=== PATIENT | male | born 1950 | race Caucasian/White ===

== ENCOUNTER 2019-10-31 19:57 | Emergency (ER) | payer MEDICARE, BC ==
[~2019-10-31] VITALS: Ht 180.3 cm; Wt 87.0 kg
[2019-10-31] MEDS ORDERED: LIDOcaine 2% 10ml TOPICAL JELLY (Urojet) MM ONE ×2 (20:30→21:25)
[2019-10-31] MEDS ORDERED: tamsulosin 0.4mg capsule PO ONE (20:40)
[2019-10-31 22:42] LABS: COLOR,URINE YELLOW (Yellow); GLUCOSE, URINE NEGATIVE (Neg); KETONES,URINE NEGATIVE (Neg); LEUKOCYTE ESTERASE ,URINE LARGE (Neg); NITRITES, URINE POSITIVE (Neg); OCCULT BLOOD,URINE LARGE (Neg); PH,URINE 6.5 (4.8-8.0); PROTEIN,URINE NEGATIVE (Neg); UROBILINOGEN,URINE 0.2 E.U/dL (0.2-1.0)
[2019-10-31 22:56] LABS: UA COLLECTION TYPE URINAL
[2019-10-31 22:57] LABS: CLARITY,URINE SLIGHTLY CLOUDY (Clear); WBC,URINE 0-4 /HPF (0-4)
[2019-10-31 22:58] LABS: BACTERIA,URINE 1+ /HPF (Neg); SQUAMOUS EPITHELIAL CELL,UR FEW /LPF (FEW)
[2019-10-31] MEDS ORDERED: CEPH500C5 PO (23:07)
--- NOTE | 2019-10-31 23:09 | NUR ---
unable to insert #14 coude Richardson. Second RN attempted with a #14 and #16 coude Richardson with no success. Third RN attempted with a #18 Richardson again with no success. Urojet was used for all attempts. Pre void bladder volume >999ml. Pt was able to void twice during attempt to place Richardson. Post void volume >800 ml. Urine sample sent.
[2019-10-31] MEDS ORDERED: CefTRIAXone 1000mg IM Kit (w/lidocaine diluent) IM ONE (23:10)
[2019-10-31 23:26] VITALS: BP 150/90
[2019-10-31] MEDS ORDERED: FLO0.4C PO (23:45)
== END 2019-10-31 23:31 | disposition home or self-care (01) ==
LOC: ER 19:59
DX: N39.0 Urinary tract infection, site not specified (principal); N40.1 Benign prostatic hyperplasia with lower urinary tract symptoms; Z88.7 Allergy status to serum and vaccine
CPT/HCPCS: 51702; 81001; 87088; 96372; 99284; J0696